=== PATIENT | male | born 1965 | race Caucasian/White ===

== ENCOUNTER 2020-07-26 14:20 | Inpatient (IN) | payer OTHER ==
[~2020-07-26] VITALS: Ht 116.8 cm; Wt 90.0 kg
[2020-07-26 15:06] LABS: Basophils # (auto) 0 10 ^3/uL (0-0.2); Basophils % (auto) 0.2 % (0.0-2.0); Eosinophils # (auto) 0.3 10 ^3/uL (0-0.8); Eosinophils % (auto) 1.9 % (0.0-7.0); Red Cell Distribution Width 15.3 % (11.8-14.3)
[2020-07-26 15:07] LABS: Hemoglobin 10.2 g/dL (13.5-17.5); Lymphocytes # (auto) 1.4 10 ^3/uL (0.4-5.4); Lymphocytes % (auto) 9.4 % (10.0-50.0); Mean Corpuscular Hemoglobin 27.5 pg (28.0-32.0); Mean Corpuscular Hgb Conc. 32.8 g/dL (32.0-36.0); Mean Corpuscular Volume 83.7 fL (80.0-100.0); Monocytes # (auto) 1.2 10 ^3/uL (0-1.3); Monocytes % (auto) 7.9 % (0.0-12.0); Neutrophils # (auto) 12.1 10 ^3/uL (1.6-8.6); Neutrophils % (auto) 80.6 % (37.0-80.0); Red Blood Cells 3.71 10^6/uL (4.5-5.90)
[2020-07-26 15:14] LABS: Albumin 1.9 g/dL (3.4-5.0); Calcium 7.8 mg/dL (8.5-10.1)
[2020-07-26 15:24] LABS: INR 1.47 (0.9-1.15); Partial Thromboplastin Time 30.7 sec (23.0-31.2)
[2020-07-26 15:29] LABS: BUN/Creatinine Ratio 9.3; Bilirubin, Total 0.6 mg/dL (0.2-1.0); Magnesium 2.3 mg/dL (1.6-2.6); Total Protein 7.2 g/dL (6.4-8.2)
[2020-07-26 15:55] LABS: Potassium 2.2 mmol/L (3.5-5.1)
[2020-07-26] MEDS ORDERED: PANTOPRAZOLE 40 MG/10 ML VIAL INJ IV ONE (16:15)
[2020-07-26] MEDS ORDERED: SODIUM CHLORIDE 0.9% 1,000 ML IVB ONE (16:15)
[2020-07-26] MEDS: POTASSIUM CHL 20MEQ/100ML 100 ML IV SCH ×2 (16:35→18:45)
[2020-07-26] MEDS ORDERED: PIPERACILLIN-TAZOB 3.375GM 100 ML IV ONE (17:30)
[2020-07-26 18:39] LABS: Urine Bacteria NONE SEEN /hpf (None Seen); Urine Blood Negative /uL (Negative); Urine Hyaline Cast FEW /lpf (0 - 2); Urine Mucus FEW (None Seen); Urine Specific Gravity 1.022 (1.001-1.035); Urine WBC 5 /hpf (0 - 3)
[2020-07-27] VITALS (8 sets, daily range): BP systolic 93–127; BP diastolic 61–80
[2020-07-27] MEDS ORDERED: ALBUMIN 5% 250 ML IV ONE
[2020-07-27] MEDS ORDERED: ONDANSETRON HCL 4 MG/2 ML VIAL IV PRN
[2020-07-27] MEDS ORDERED: NITROGLYCERIN 0.4 MG SL TAB SL PRN
[2020-07-27] MEDS ORDERED: ACETAMINOPHEN 325 MG TAB PO PRN
[2020-07-27] MEDS ORDERED: MORPHINE SULFATE INJECTION 2 MG/ML SYRG IV PRN
[2020-07-27] MEDS: D5W/SOD CHLO 0.9% 1,000 ML IV SCH ×2 (02:12→13:39)
[2020-07-27] MEDS: POTASSIUM CHL 20MEQ/100ML 100 ML IV SCH ×3 (03:23→10:07)
[2020-07-27] MEDS ORDERED: ACETAMINOPHEN 650 MG RECT SUPP PR PRN ×2 (04:00)
[2020-07-27] MEDS: PIPERACILLIN-TAZOB 2.25GM 50 ML IV SCH ×3 (05:40→21:23)
[2020-07-27 06:00] LABS: Albumin 1.9 g/dL (3.4-5.0); Calcium 7.2 mg/dL (8.5-10.1); Magnesium 2.3 mg/dL (1.6-2.6)
[2020-07-27 06:02] LABS: BUN/Creatinine Ratio 7.5
[2020-07-27 06:04] LABS: Bilirubin, Total 0.5 mg/dL (0.2-1.0); Total Protein 6.4 g/dL (6.4-8.2)
[2020-07-27 06:10] LABS: Basophils # (auto) 0 10 ^3/uL (0-0.2); Basophils % (auto) 0.2 % (0.0-2.0); Hemoglobin 8.7 g/dL (13.5-17.5); Lymphocytes # (auto) 1.3 10 ^3/uL (0.4-5.4); Monocytes # (auto) 1.1 10 ^3/uL (0-1.3)
[2020-07-27 06:12] LABS: Eosinophils # (auto) 0.4 10 ^3/uL (0-0.8); Eosinophils % (auto) 2.7 % (0.0-7.0); Hematocrit 26.2 % (41.0-53.0); Lymphocytes % (auto) 9.9 % (10.0-50.0); Mean Corpuscular Hemoglobin 27.8 pg (28.0-32.0); Mean Corpuscular Hgb Conc. 33.3 g/dL (32.0-36.0); Mean Corpuscular Volume 83.5 fL (80.0-100.0); Monocytes % (auto) 8.4 % (0.0-12.0); Neutrophils # (auto) 10.5 10 ^3/uL (1.6-8.6); Neutrophils % (auto) 78.8 % (37.0-80.0); Red Blood Cells 3.14 10^6/uL (4.5-5.90); Red Cell Distribution Width 15.4 % (11.8-14.3); White Blood Cell 13.3 10^3/uL (4.4-10.8)
[2020-07-27 06:13] LABS: Potassium 2.7 mmol/L (3.5-5.1)
[2020-07-27] MEDS: ZINC SULFATE 220mg CAP or TAB PO SCH (10:07)
[2020-07-27] MEDS: PANTOPRAZOLE 40 MG/10 ML VIAL INJ IV SCH ×2 (10:07→21:24)
[2020-07-27] MEDS: ASCORBIC ACID 500 MG TAB PO SCH ×2 (10:07→21:25)
[2020-07-27] MEDS: FAMOTIDINE 20 MG TAB PO SCH ×2 (10:07→21:24)
[2020-07-27] MEDS: MULTIPLE VITAMIN TAB PO SCH (10:07)
[2020-07-27] MEDS ORDERED: PHYTONADIONE(VitK) ORAL Susp 10mg/10ml(1mg/ml) PO ONE (10:30)
[2020-07-27] MEDS ORDERED: AZITHROMYCIN 250 MG TAB PO ONE (10:30)
[2020-07-27 16:48] LABS: Calcium 7.6 mg/dL (8.5-10.1)
[2020-07-27 16:51] LABS: BUN/Creatinine Ratio 8.5
[2020-07-27 17:50] LABS: Potassium 2.9 mmol/L (3.5-5.1)
[2020-07-27] MEDS ORDERED: POTASSIUM EFFERVESENT TAB 25 MEQ PO ONE (18:00)
[2020-07-27 19:39] LABS: Hematocrit 29.3 % (41.0-53.0); Hemoglobin 9.5 g/dL (13.5-17.5)
[2020-07-27 19:58] LABS: BUN/Creatinine Ratio 9.2; Calcium 7.4 mg/dL (8.5-10.1); Potassium 3.8 mmol/L (3.5-5.1)
[2020-07-27] MEDS: metroNIDAZOLE 500MG/100ML 100 ML IV SCH (21:24)
[2020-07-28] VITALS (11 sets, daily range): BP systolic 104–120; BP diastolic 68–82
[2020-07-28] MEDS: D5W/SOD CHLO 0.9% 1,000 ML IV SCH ×2 (04:55→16:12)
[2020-07-28] MEDS: metroNIDAZOLE 500MG/100ML 100 ML IV SCH ×3 (05:30→21:31)
[2020-07-28 05:51] LABS: Basophils # (auto) 0 10 ^3/uL (0-0.2); Mean Corpuscular Hgb Conc. 33.4 g/dL (32.0-36.0); Red Cell Distribution Width 15.4 % (11.8-14.3)
[2020-07-28 05:54] LABS: Basophils % (auto) 0.2 % (0.0-2.0); Eosinophils # (auto) 0.5 10 ^3/uL (0-0.8); Eosinophils % (auto) 3.8 % (0.0-7.0); Hematocrit 26.8 % (41.0-53.0); Hemoglobin 8.9 g/dL (13.5-17.5); Lymphocytes # (auto) 1.7 10 ^3/uL (0.4-5.4); Lymphocytes % (auto) 12.8 % (10.0-50.0); Mean Corpuscular Hemoglobin 27.9 pg (28.0-32.0); Mean Corpuscular Volume 83.6 fL (80.0-100.0); Monocytes # (auto) 1.3 10 ^3/uL (0-1.3); Monocytes % (auto) 9.3 % (0.0-12.0); Neutrophils % (auto) 73.9 % (37.0-80.0); White Blood Cell 13.5 10^3/uL (4.4-10.8)
[2020-07-28] MEDS: PIPERACILLIN-TAZOB 2.25GM 50 ML IV SCH ×3 (06:07→21:30)
[2020-07-28 06:14] LABS: Albumin 1.8 g/dL (3.4-5.0); BUN/Creatinine Ratio 6.5; Bilirubin, Total 0.4 mg/dL (0.2-1.0); Calcium 7.7 mg/dL (8.5-10.1); Total Protein 6.4 g/dL (6.4-8.2)
[2020-07-28 06:17] LABS: INR 1.19 (0.9-1.15)
[2020-07-28] MEDS: MULTIPLE VITAMIN TAB PO SCH (10:00)
[2020-07-28] MEDS: ZINC SULFATE 220mg CAP or TAB PO SCH (10:00)
[2020-07-28] MEDS: ASCORBIC ACID 500 MG TAB PO SCH ×2 (10:00→21:30)
[2020-07-28] MEDS: FAMOTIDINE 20 MG TAB PO SCH ×2 (10:00→21:30)
[2020-07-28] MEDS: AZITHROMYCIN 250 MG TAB PO SCH (10:29)
[2020-07-28] MEDS: PANTOPRAZOLE 40 MG/10 ML VIAL INJ IV SCH ×2 (10:29→21:30)
[2020-07-28] MEDS ORDERED: LIDOCAINE 2%HCL (LOCAL ANESTH.) INJ 20ML MDV ONE (10:53)
[2020-07-28] MEDS ORDERED: fentaNYL CITRATE 100 MCG/2 ML VL IV ONE (11:00)
[2020-07-28] MEDS ORDERED: MIDAZOLAM HCL 2MG/2ML 2ml VIAL (1mg/ml) IV ONE (11:00)
[2020-07-28] MEDS ORDERED: fentaNYL CITRATE 100 MCG/2 ML VL ONE (11:03)
[2020-07-28] MEDS ORDERED: MIDAZOLAM HCL 2MG/2ML 2ml VIAL (1mg/ml) ONE (11:03)
[2020-07-28] MEDS ORDERED: POTASSIUM CHL 20 Meq TABLET PO ONE (13:30)
[2020-07-28] MEDS: MORPHINE SULFATE INJECTION 2 MG/ML SYRG IV PRN (16:31)
[2020-07-29] MEDS: D5W/SOD CHLO 0.9% 1,000 ML IV SCH ×2 (04:40→14:15)
[2020-07-29] MEDS: metroNIDAZOLE 500MG/100ML 100 ML IV SCH ×3 (04:40→21:56)
[2020-07-29] MEDS: MORPHINE SULFATE INJECTION 2 MG/ML SYRG IV PRN ×4 (04:41→23:13)
[2020-07-29 05:13] VITALS: BP 121/73
[2020-07-29] MEDS: PIPERACILLIN-TAZOB 2.25GM 50 ML IV SCH ×3 (05:48→21:55)
[2020-07-29 06:00] LABS: Basophils # (auto) 0 10 ^3/uL (0-0.2); Eosinophils # (auto) 0.3 10 ^3/uL (0-0.8); Lymphocytes # (auto) 1.9 10 ^3/uL (0.4-5.4)
[2020-07-29 06:03] LABS: Basophils % (auto) 0.2 % (0.0-2.0); Eosinophils % (auto) 2.1 % (0.0-7.0); Hematocrit 27.6 % (41.0-53.0); Lymphocytes % (auto) 15.4 % (10.0-50.0); Mean Corpuscular Hemoglobin 27.5 pg (28.0-32.0); Mean Corpuscular Hgb Conc. 32.6 g/dL (32.0-36.0); Mean Corpuscular Volume 84.2 fL (80.0-100.0); Monocytes % (auto) 7.8 % (0.0-12.0); Neutrophils # (auto) 9.1 10 ^3/uL (1.6-8.6); Neutrophils % (auto) 74.5 % (37.0-80.0); Red Blood Cells 3.28 10^6/uL (4.5-5.90); Red Cell Distribution Width 15.4 % (11.8-14.3); White Blood Cell 12.2 10^3/uL (4.4-10.8)
[2020-07-29 06:20] LABS: Potassium 3.3 mmol/L (3.5-5.1)
[2020-07-29 06:32] LABS: BUN/Creatinine Ratio 7.1; Calcium 8.1 mg/dL (8.5-10.1); Magnesium 1.8 mg/dL (1.6-2.6)
[2020-07-29 08:30] VITALS: BP 121/73
[2020-07-29] MEDS: PANTOPRAZOLE 40 MG/10 ML VIAL INJ IV SCH ×2 (08:37→21:52)
[2020-07-29] MEDS: ASCORBIC ACID 500 MG TAB PO SCH ×2 (08:37→21:53)
[2020-07-29] MEDS: AZITHROMYCIN 250 MG TAB PO SCH (08:38)
[2020-07-29] MEDS: ZINC SULFATE 220mg CAP or TAB PO SCH (08:38)
[2020-07-29] MEDS: FAMOTIDINE 20 MG TAB PO SCH ×2 (08:38→21:52)
[2020-07-29] MEDS: MULTIPLE VITAMIN TAB PO SCH (08:38)
[2020-07-29] MEDS ORDERED: POTASSIUM CHL 20 Meq TABLET PO ONE (10:15)
[2020-07-29] MEDS ORDERED: MAGNESIUM SULFATE 1GM/100ML 100 ML IV ONE (10:15)
[2020-07-29 12:37] VITALS: BP 107/70
[2020-07-29] MEDS: HYDROcodone-ACET 5/325MG TAB PO PRN ×2 (15:06→21:52)
[2020-07-29 16:43] VITALS: BP 115/76
[2020-07-29 20:00] VITALS: BP 105/74
[2020-07-29 22:56] VITALS: BP 105/74
[2020-07-30] VITALS (15 sets, daily range): BP systolic 112–139; BP diastolic 69–90
[2020-07-30] MEDS: MORPHINE SULFATE INJECTION 2 MG/ML SYRG IV PRN ×4 (05:21→20:07)
[2020-07-30] MEDS: metroNIDAZOLE 500MG/100ML 100 ML IV SCH ×3 (05:41→21:06)
[2020-07-30] MEDS: PIPERACILLIN-TAZOB 2.25GM 50 ML IV SCH ×3 (05:41→21:06)
[2020-07-30] MEDS: D5W/SOD CHLO 0.9% 1,000 ML IV SCH (05:42)
[2020-07-30 06:02] LABS: INR 1.19 (0.9-1.15)
[2020-07-30 06:05] LABS: Magnesium 1.7 mg/dL (1.6-2.6); Potassium 3.5 mmol/L (3.5-5.1)
[2020-07-30 06:10] LABS: Basophils # (auto) 0 10 ^3/uL (0-0.2); Basophils % (auto) 0.4 % (0.0-2.0); Eosinophils # (auto) 0.4 10 ^3/uL (0-0.8); Eosinophils % (auto) 3.7 % (0.0-7.0); Hematocrit 26.5 % (41.0-53.0); Hemoglobin 8.7 g/dL (13.5-17.5); Lymphocytes # (auto) 1.8 10 ^3/uL (0.4-5.4); Lymphocytes % (auto) 17.8 % (10.0-50.0); Mean Corpuscular Hemoglobin 27.8 pg (28.0-32.0); Mean Corpuscular Volume 84.2 fL (80.0-100.0); Monocytes # (auto) 0.8 10 ^3/uL (0-1.3); Monocytes % (auto) 7.4 % (0.0-12.0); Neutrophils # (auto) 7.3 10 ^3/uL (1.6-8.6); Neutrophils % (auto) 70.7 % (37.0-80.0); Red Blood Cells 3.15 10^6/uL (4.5-5.90); White Blood Cell 10.3 10^3/uL (4.4-10.8)
[2020-07-30] MEDS: HYDROcodone-ACET 5/325MG TAB PO PRN ×3 (07:40→22:11)
[2020-07-30] MEDS: PANTOPRAZOLE 40 MG/10 ML VIAL INJ IV SCH ×2 (09:07→21:06)
[2020-07-30] MEDS: FAMOTIDINE 20 MG TAB PO SCH ×2 (09:08→21:06)
[2020-07-30] MEDS: ZINC SULFATE 220mg CAP or TAB PO SCH (09:08)
[2020-07-30] MEDS: AZITHROMYCIN 250 MG TAB PO SCH (09:08)
[2020-07-30] MEDS: MULTIPLE VITAMIN TAB PO SCH (09:08)
[2020-07-30] MEDS: ASCORBIC ACID 500 MG TAB PO SCH ×2 (09:25→21:06)
[2020-07-30] MEDS ORDERED: MAGNESIUM SULFATE 1GM/100ML 100 ML IV ONE (09:30)
[2020-07-30] MEDS ORDERED: POTASSIUM CHL 20 Meq TABLET PO ONE (09:30)
[2020-07-30] MEDS ORDERED: FERR27TA2 PO (12:16)
[2020-07-30] MEDS ORDERED: CLON0.5T PO (12:16)
[2020-07-30] MEDS: DOCUSATE SOD 100 MG CAP PO PRN ×2 (13:21→21:06)
[2020-07-30] MEDS ORDERED: MIDAZOLAM HCL 2MG/2ML 2ml VIAL (1mg/ml) ONE (15:12)
[2020-07-30] MEDS ORDERED: fentaNYL CITRATE 100 MCG/2 ML VL ONE (15:13)
[2020-07-30] MEDS ORDERED: MIDAZOLAM HCL 2MG/2ML 2ml VIAL (1mg/ml) IV ONE (15:15)
[2020-07-30] MEDS ORDERED: fentaNYL CITRATE 100 MCG/2 ML VL IV ONE (15:15)
[2020-07-30] MEDS ORDERED: LIDOCAINE 2%HCL (LOCAL ANESTH.) INJ 20ML MDV ONE (15:30)
[2020-07-31] MEDS: MORPHINE SULFATE INJECTION 2 MG/ML SYRG IV PRN ×4 (00:16→20:48)
[2020-07-31] MEDS: HYDROcodone-ACET 5/325MG TAB PO PRN ×3 (01:58→11:25)
[2020-07-31 05:00] VITALS: BP 118/76
[2020-07-31] MEDS: PIPERACILLIN-TAZOB 2.25GM 50 ML IV SCH ×3 (05:19→21:16)
[2020-07-31] MEDS: metroNIDAZOLE 500MG/100ML 100 ML IV SCH ×3 (05:19→21:15)
[2020-07-31 06:50] LABS: Hemoglobin 8.7 g/dL (13.5-17.5)
[2020-07-31 07:09] LABS: Potassium 4.4 mmol/L (3.5-5.1)
[2020-07-31 07:13] LABS: Magnesium 1.6 mg/dL (1.6-2.6)
[2020-07-31 09:00] VITALS: BP 116/67
[2020-07-31] MEDS: MULTIPLE VITAMIN TAB PO SCH (11:48)
[2020-07-31] MEDS: PANTOPRAZOLE 40 MG/10 ML VIAL INJ IV SCH ×2 (11:48→21:16)
[2020-07-31] MEDS: ZINC SULFATE 220mg CAP or TAB PO SCH (11:48)
[2020-07-31] MEDS: FAMOTIDINE 20 MG TAB PO SCH ×2 (11:48→21:16)
[2020-07-31] MEDS: AZITHROMYCIN 250 MG TAB PO SCH (11:49)
[2020-07-31] MEDS: ASCORBIC ACID 500 MG TAB PO SCH ×2 (11:49→21:16)
[2020-07-31] MEDS ORDERED: MAGNESIUM SULFATE 1GM/100ML 100 ML IV ONE (12:30)
[2020-07-31 13:00] VITALS: BP 127/82
[2020-07-31 17:00] VITALS: BP 133/78
[2020-07-31] MEDS ORDERED: IBUPROFEN 400 MG TAB PO PRN (17:45)
[2020-07-31] MEDS ORDERED: ACETAMINOPHEN 650 MG RECT SUPP PR PRN ×2 (17:45→18:00)
[2020-07-31] MEDS ORDERED: ACETAMINOPHEN 325 MG TAB PO PRN ×2 (17:45→18:00)
[2020-07-31 20:00] VITALS: BP 122/77
[2020-07-31] MEDS: DOCUSATE SOD 100 MG CAP PO PRN (21:16)
[2020-07-31 22:21] VITALS: BP 122/77
[2020-08-01] MEDS: HYDROcodone-ACET 5/325MG TAB PO PRN ×4 (01:15→16:45)
[2020-08-01 05:03] VITALS: BP 122/69
[2020-08-01] MEDS: metroNIDAZOLE 500MG/100ML 100 ML IV SCH ×2 (05:11→12:57)
[2020-08-01] MEDS: MORPHINE SULFATE INJECTION 2 MG/ML SYRG IV PRN ×3 (05:11→15:10)
[2020-08-01] MEDS: PIPERACILLIN-TAZOB 2.25GM 50 ML IV SCH ×2 (05:11→12:57)
[2020-08-01] MEDS: ASCORBIC ACID 500 MG TAB PO SCH (08:31)
[2020-08-01] MEDS: FAMOTIDINE 20 MG TAB PO SCH (08:31)
[2020-08-01] MEDS: ZINC SULFATE 220mg CAP or TAB PO SCH (08:31)
[2020-08-01] MEDS: PANTOPRAZOLE 40 MG/10 ML VIAL INJ IV SCH (08:31)
[2020-08-01] MEDS: MULTIPLE VITAMIN TAB PO SCH (08:32)
[2020-08-01] MEDS: DOCUSATE SOD 100 MG CAP PO PRN (08:33)
[2020-08-01 08:57] VITALS: BP 112/73
[2020-08-01 13:00] VITALS: BP 112/73
== END 2020-08-01 17:13 | disposition short-term general hospital (02) | DRG 377 ==
LOC: EDBD 14:20 → ER 14:20 → TELE 23:59 → TELE-CENTR 07-27 01:17 → TELE-EAST 07-27 13:51
PROVIDERS: ADMIT Nurse Practitioner Family; ATTEND Internal Medicine
PROC: 0W9930Z Drainage of Right Pleural Cavity with Drainage Device, Percutaneous Approach (ICD-10-PCS; principal; 2020-07-28)
DX: K92.2 Gastrointestinal hemorrhage, unspecified (principal); J86.9 Pyothorax without fistula; J96.01 Acute respiratory failure with hypoxia; A41.9 Sepsis, unspecified organism; D68.9 Coagulation defect, unspecified; E44.0 Moderate protein-calorie malnutrition; J90 Pleural effusion, not elsewhere classified; Z20.822 Contact with and (suspected) exposure to COVID-19; D50.0 Iron deficiency anemia secondary to blood loss (chronic); E87.6 Hypokalemia; F17.200 Nicotine dependence, unspecified, uncomplicated; K76.0 Fatty (change of) liver, not elsewhere classified; Z86.16 Personal history of COVID-19; E88.09 Other disorders of plasma-protein metabolism, not elsewhere classified; N20.0 Calculus of kidney; Z78.9 Other specified health status; Z87.01 Personal history of pneumonia (recurrent); Z79.899 Other long term (current) drug therapy; Z79.891 Long term (current) use of opiate analgesic; Z79.01 Long term (current) use of anticoagulants
CPT/HCPCS: 10022; 36415; 71045; 71250; 74176; 76604; 77002; 77012; 80048; 80053; 81001; 82270; 83605; 83735; 83986; 84132; 84484; 85014; 85018; 85025; 85610; 85730; 86850; 86900; 86901; 87040; 87070; 87205; 87426; 87493; 89051; 93005; 96365; 96367; 96375; 99291; A4223; C1729; C9113; G0378; J2250; J2543; J3480; J3490; J7042